=== PATIENT | female | born 1995 | race Caucasian/White ===

== ENCOUNTER 2021-06-22 21:02 | Emergency (ER) | payer OTHER, SELFPAY ==
[2021-06-22 21:03] VITALS: BP 111/77; PULSE 88; RESP 15; TEMP 35.9; O2SAT 100; BMI 20.7
--- NOTE | 2021-06-22 21:40 | EKG12_ITS ---
Test Reason : DYSRHYTHMIA Blood Pressure : / mmHG Vent. Rate : 084 BPM Atrial Rate : 084 BPM P-R Int : 194 ms QRS Dur : 096 ms QT Int : 370 ms P-R-T Axes : 068 092 071 degrees QTc Int : 437 ms Normal sinus rhythm Normal ECG Confirmed by ANNAMARIA SCHREIBER, SINDI ([id number]), editorial clerk ASH CARDENAS ([id number]) on 06/25/2021 10:57:55 AM Referred By: AMAYA Confirmed By:SINDI YIN MD
--- NOTE | 2021-06-22 21:42 | RAD_ITS ---
EXAM: XR CHEST, 1 VIEW CLINICAL INDICATION: sob TECHNIQUE: Frontal view of the chest. This report was created using [employer] report generation technology. COMPARISON: None. FINDINGS: LUNGS AND PLEURAL SPACES: Unremarkable. No consolidation or edema. No pneumothorax. No effusion. HEART: Unremarkable. Cardiac silhouette not enlarged. MEDIASTINUM: Central airways and mediastinal contour are unremarkable. BONES/JOINTS: Unremarkable. SOFT TISSUES: Unremarkable. RAD/Chest 1 View (Portable) IMPRESSION: No radiographic evidence of acute cardiopulmonary disease. Electronically Signed: Vic Mcdonald MD at 22:[address] [facility] ,
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
[2021-06-22] MEDS: LORazepam 0.5 MG Tablet PO (21:53)
[2021-06-22 23:07] VITALS: PULSE 67; RESP 17; O2SAT 96
== END 2021-06-22 23:09 | disposition home or self-care (01) ==
PROVIDERS: Emergency Provider Emergency Medicine; Visit Provider Emergency Medicine
DX: F41.9 Anxiety disorder, unspecified (principal); F17.210 Nicotine dependence, cigarettes, uncomplicated
CPT/HCPCS: 71045; 93005; 99283